=== PATIENT | male | born 1925 ===

== ENCOUNTER → 2017-05-06 | Outpatient (CLI) | payer OTHER | END | disposition home or self-care (01) | LOC: LAB 13:57 | DX: R97.20 Elevated prostate specific antigen [PSA] (principal) ==

== ENCOUNTER 2017-06-30 07:21 | Outpatient (CLI) | payer OTHER | END 2017-06-30 07:28 | disposition home or self-care (01) | LOC: SONOGRAMA 07:21 | DX: R97.20 Elevated prostate specific antigen [PSA] (principal) ==

== ENCOUNTER 2017-07-22 08:33 | Outpatient (CLI) | payer OTHER | END 2017-07-22 09:30 | disposition home or self-care (01) | LOC: NUCLEAR 08:33 | DX: C61 Malignant neoplasm of prostate (principal) | CPT/HCPCS: 78306; 78320; A9503 ==